=== PATIENT | female | born 1965 | race Caucasian/White ===

== ENCOUNTER 2017-08-21 22:12 | Emergency (ER) | payer OTHER ==
[~2017-08-21] VITALS: Ht 160 cm; Wt 75.0 kg
[2017-08-21] MEDS ORDERED: CALC-744 PO (22:23)
[2017-08-21] MEDS ORDERED: GEMF600T3 PO (22:23)
[2017-08-21] MEDS ORDERED: IBUP-2071 PO (22:23)
[2017-08-21] MEDS ORDERED: SERT50TA12 PO (22:23)
[2017-08-21 23:38] LABS: BASOPHILS % (AUTO) 0.6 % (0.0-2.0); EOSINOPHILS % (AUTO) 2.3 % (1.0-6.0); HEMATOCRIT 37.5 % (36-46); HEMOGLOBIN 13.1 g/dL (12.0-16.0); LYMPHOCYTES # (AUTO) 2.2 K/uL (1.0-4.8); LYMPHOCYTES % (AUTO) 36.6 % (22.0-44.0); MEAN CORPUSCULAR HEMOGLOBIN 29.5 pg (26.0-34.0); MEAN CORPUSCULAR HGB CONC 34.9 G/dL (31.0-37.0); MEAN CORPUSCULAR VOLUME 85 fL (80-100); MONOCYTES # (AUTO) 0.5 K/uL (0.1-1.0); MONOCYTES % (AUTO) 7.6 % (2.0-9.0); NEUTROPHILS # (AUTO) 3.1 K/uL (1.8-7.7); NEUTROPHILS % (AUTO) 52.9 % (40.0-70.0); PLATELET COUNT (AUTO) 315 K/uL (150-450); RED BLOOD CELL COUNT(AUTO) 4.43 MIL/uL (4.00-5.20); RED CELL DISTRIBUTION WIDTH 12.9 % (11.5-14.5)
[2017-08-21 23:58] LABS: ANION GAP 6 mmol/L (8-16); CALCIUM, TOTAL 8.9 mg/dL (8.8-10.5); CARBON DIOXIDE 28 mmol/L (22-29); CHLORIDE 106 mmol/L (98-107); CREATININE 0.53 mg/dL (0.60-1.30); GLOMERULAR FILTR. RATE CALC > 60 mL/min (>60); GLUCOSE,RANDOM 125 mg/dL (70-110); POTASSIUM 3.7 mmol/L (3.5-5.1); SODIUM SERUM 140 mmol/L (136-145); UREA NITROGEN, BLOOD 12 mg/dL (7-18)
[2017-08-22 00:02] LABS: PROTHROMBIN TIME 10.7 SEC (9.4-11.6)
[2017-08-22 00:15] LABS: ALANINE AMINOTRANSFERASE 27 U/L (12-78); ALBUMIN 3.7 g/dL (3.4-5.0); ALKALINE PHOSPHATASE 76 U/L (46-116); ASPARTATE AMINOTRANSFERASE 17 U/L (15-37); BILIRUBIN,TOTAL 0.5 mg/dL (0.1-1.0); TOTAL PROTEIN, SERUM 7.1 g/dL (6.4-8.2)
[2017-08-22] MEDS ORDERED: DIAZEPAM 5 MG TABLET PO ONE (00:30)
[2017-08-22 01:00] VITALS: BP 125/77
== END 2017-08-22 01:27 | disposition home or self-care (01) ==
LOC: EMS 22:13
DX: R42 Dizziness and giddiness (principal); R11.0 Nausea; E78.00 Pure hypercholesterolemia, unspecified
CPT/HCPCS: 70450; 93005; 99285